=== PATIENT | male | born 1980 | race Caucasian/White ===

== ENCOUNTER 2017-03-08 15:27 | Observation (INO) | payer MEDICARE, SELFPAY ==
[~2017-03-08 15:27] MED LIST: ABILIFY5 MG PO; ALPRAZOLAM1 M2 PO; CELEXA10 MG PO; CIMZIA400 MG/2 M SQ; COLACE100 MG PO; DEPAKOTE; H PO; IMODIUM2 MG; POTASSIUM99 M1 PO; TYLENOL325 M2 PO
[2017-03-08] MEDS ORDERED: KLONOPIN1 M1 PO (15:42)
[2017-03-08] MEDS ORDERED: POTASSIUM CHLO20 ME3 PO (15:42)
[2017-03-08] MEDS ORDERED: TRAZODONE HCL100 M1 PO (15:42)
[2017-03-08] MEDS ORDERED: PROZAC20 M3 PO (15:42)
[2017-03-08] MEDS ORDERED: OMEPRAZOLE20 M3 PO (15:42)
[2017-03-08] MEDS ORDERED: SEROQUEL50 M1 PO (15:59)
[2017-03-08 16:19] LABS: BASO % 0.1 % (0-2); EOS % 5.7 % (0-7); EOSINOPHIL ABSOLUTE COUNT 0.7 tho/cmm (0.0-0.7); HCT-HEMATOCRIT 32.2 % (36.0-53.5); HGB-HEMOGLOBIN 10.9 gm/dl (13.5-17.0); IMMATURE GRANULOCYTES ABSOLUTE 0.04 tho/cmm (0-0.03); IMMATURE GRANULOCYTES PERCENT 0.3 % (0-0.3); LYMPH % 13.4 % (20-45); LYMPH ABSOLUTE COUNT 1.7 tho/cmm (0.8-4.5); MCH (MEAN CORPUSCULAR HGB) 27.3 pg (28.0-32.0); MCHC MEAN CORPUSCULAR HGB CONC 33.9 % (32.0-36.0); MCV (MEAN CELL VOLUME) 80.5 fl (82.0-96.0); MEAN PLATELET VOLUME 8.6 cmc (9.4-12.4); MONO % 8.8 % (0-12); MONOCYTE ABSOLUTE COUNT 1.1 tho/cmm (0.0-1.2); NEUTROPHIL ABSOLUTE COUNT 9.2 tho/cmm (1.6-8.0); NEUTROPHIL-AUTOMATED 9.2 tho/cmm (1.6-8.0); NEUTROPHILS % 71.7 % (40-80); PLATELET COUNT 268 tho/cmm (150-450); RED CELL DISTRIBUTION WIDTH 14.5 % (12.4-16.4); WHITE BLOOD COUNT 12.9 tho/cmm (4.0-10.0)
[2017-03-08 16:34] LABS: ALB/GLOB RATIO 0.7 (0.8-2.0); ALBUMIN 2.9 g/dl (3.5-5.0); ALKALINE PHOSPHATASE 76 U/L (33-138); ALT/SGPT 14 U/L (12-78); ANION GAP 13 mmol/L (0-20); AST/SGOT 14 U/L (10-40); BILIRUBIN,TOTAL 0.2 mg/dl (0.0-1.5); BLOOD UREA NITROGEN 10 mg/dl (6-24); CARBON DIOXIDE-VENOUS 23 mmol/L (22-32); CHLORIDE 103 mmol/l (96-110); CREATININE 1.07 mg/dl (0.60-1.30); GLUCOSE 100 mg/dL (70-110); LIPASE 281 U/L (73-393); SODIUM 136 mmol/L (135-145); eGFR VALUE FOR BLACK >90 mL/Min
[2017-03-08 16:41] LABS: POTASSIUM 2.7 mmol/L (3.7-5.1)
[2017-03-08 17:09] LABS: URINE BILIRUBIN NEGATIVE (NEG); URINE BLOOD NEGATIVE (NEG); URINE GLUCOSE (UA) NEGATIVE (NEG); URINE KETONE NEGATIVE (NEG); URINE LEUKOCYTE ESTERASE NEGATIVE (NEG); URINE NITRITE NEGATIVE (NEG); URINE PH 6.5 (5.0-8.0); URINE PROTEIN NEGATIVE (NEG); URINE SPECIFIC GRAVITY 1.005 (1.003-1.030)
[2017-03-08 17:14] LABS: URINE APPEARANCE CLEAR; URINE COLOR PALE YELLOW
[2017-03-09 05:21] LABS: EOS % 0.5 % (0-7); EOSINOPHIL ABSOLUTE COUNT 0.1 tho/cmm (0.0-0.7); HCT-HEMATOCRIT 32.4 % (36.0-53.5); HGB-HEMOGLOBIN 10.9 gm/dl (13.5-17.0); IMMATURE GRANULOCYTES ABSOLUTE 0.01 tho/cmm (0-0.03); IMMATURE GRANULOCYTES PERCENT 0.1 % (0-0.3); LYMPH % 6.9 % (20-45); LYMPH ABSOLUTE COUNT 0.6 tho/cmm (0.8-4.5); MCH (MEAN CORPUSCULAR HGB) 27.3 pg (28.0-32.0); MCHC MEAN CORPUSCULAR HGB CONC 33.6 % (32.0-36.0); MCV (MEAN CELL VOLUME) 81.2 fl (82.0-96.0); MEAN PLATELET VOLUME 8.8 cmc (9.4-12.4); MONO % 1.1 % (0-12); MONOCYTE ABSOLUTE COUNT 0.1 tho/cmm (0.0-1.2); NEUTROPHIL ABSOLUTE COUNT 8.5 tho/cmm (1.6-8.0); NEUTROPHIL-AUTOMATED 8.5 tho/cmm (1.6-8.0); NEUTROPHILS % 91.4 % (40-80); PLATELET COUNT 253 tho/cmm (150-450); RED BLOOD COUNT 3.99 mil/cmm (4.40-5.70); RED CELL DISTRIBUTION WIDTH 14.6 % (12.4-16.4); WHITE BLOOD COUNT 9.3 tho/cmm (4.0-10.0)
[2017-03-09 05:35] LABS: ANION GAP 14 mmol/L (0-20); BLOOD UREA NITROGEN 9 mg/dl (6-24); CALCIUM 7.8 mg/dl (8.5-10.5); CARBON DIOXIDE-VENOUS 21 mmol/L (22-32); CHLORIDE 111 mmol/l (96-110); CREATININE 1.08 mg/dl (0.60-1.30); GLUCOSE 147 mg/dL (70-110); POTASSIUM 3.7 mmol/L (3.7-5.1); SODIUM 142 mmol/L (135-145); eGFR VALUE FOR BLACK >90 mL/Min
[2017-07-06] MEDS ORDERED: PERCOCET 7.5-31 EAC1 PO (00:07)
[2017-07-17] MEDS ORDERED: STELARA45 MG/0.5 SC (22:06)
[2017-07-17] MEDS ORDERED: CIPRO250 M2 PO (22:08)
[2017-07-17] MEDS ORDERED: PERCOCET 5-3251 EACH PO (23:54)
[2017-07-17] MEDS ORDERED: CIPROFLOXA250 MG/5 M PO (23:54)
[2017-07-24] MEDS ORDERED: PERCOCET 5-3251 EACH PO (20:25)
[2017-07-28] MEDS ORDERED: PERCOCET 7.5-31 EAC1 PO (19:22)
== END 2017-03-09 17:30 ==
LOC: EDMED 15:27 → EMR2 19:45 → 5WD 20:51
PROVIDERS: Emergency Medicine; ADMIT Family Medicine
DX: K50.90 Crohn's disease, unspecified, without complications (principal); F41.9 Anxiety disorder, unspecified; F32.9 Major depressive disorder, single episode, unspecified; E87.6 Hypokalemia; I95.9 Hypotension, unspecified; F12.10 Cannabis abuse, uncomplicated; Z79.899 Other long term (current) drug therapy
CPT/HCPCS: G0378; J1170; J1956; J2270; J2405; J2543; J2930; J3480; J7030; Q9967

== ENCOUNTER 2017-03-17 19:56 | Inpatient (IN) | payer MEDICARE, SELFPAY ==
[~2017-03-17 19:56] MED LIST changes: +KLONOPIN1 M1 PO; +OMEPRAZOLE20 M3 PO; +POTASSIUM CHLO20 ME3 PO; +PROZAC20 M3 PO; +SEROQUEL50 M1 PO; +TRAZODONE HCL100 M1 PO
[2017-03-17] MEDS ORDERED: AUGMENTIN 875-1 EAC2 PO (21:09)
[2017-03-17] MEDS ORDERED: B12 SHOTS (21:10)
[2017-03-17 21:33] LABS: EOS % 1.5 % (0-7); EOSINOPHIL ABSOLUTE COUNT 0.4 tho/cmm (0.0-0.7); HCT-HEMATOCRIT 32.6 % (36.0-53.5); HGB-HEMOGLOBIN 10.8 gm/dl (13.5-17.0); IMMATURE GRANULOCYTES ABSOLUTE 0.26 tho/cmm (0-0.03); IMMATURE GRANULOCYTES PERCENT 1.1 % (0-0.3); LYMPH % 13.5 % (20-45); LYMPH ABSOLUTE COUNT 3.3 tho/cmm (0.8-4.5); MCH (MEAN CORPUSCULAR HGB) 27.6 pg (28.0-32.0); MCHC MEAN CORPUSCULAR HGB CONC 33.1 % (32.0-36.0); MCV (MEAN CELL VOLUME) 83.4 fl (82.0-96.0); MEAN PLATELET VOLUME 8.7 cmc (9.4-12.4); MONO % 5.9 % (0-12); MONOCYTE ABSOLUTE COUNT 1.5 tho/cmm (0.0-1.2); NEUTROPHIL ABSOLUTE COUNT 19.1 tho/cmm (1.6-8.0); NEUTROPHIL-AUTOMATED 19.1 tho/cmm (1.6-8.0); PLATELET COUNT 275 tho/cmm (150-450); RED BLOOD COUNT 3.91 mil/cmm (4.40-5.70); RED CELL DISTRIBUTION WIDTH 15.3 % (12.4-16.4); WHITE BLOOD COUNT 24.5 tho/cmm (4.0-10.0)
[2017-03-17 21:48] LABS: ALB/GLOB RATIO 0.7 (0.8-2.0); ALBUMIN 3.1 g/dl (3.5-5.0); ALKALINE PHOSPHATASE 79 U/L (33-138); ALT/SGPT 25 U/L (12-78); ANION GAP 14 mmol/L (0-20); AST/SGOT 9 U/L (10-40); BILIRUBIN,TOTAL 0.1 mg/dl (0.0-1.5); BLOOD UREA NITROGEN 18 mg/dl (6-24); C-REACTIVE PROTEIN 1.7 mg/dl (0-0.9); CALCIUM 8.4 mg/dl (8.5-10.5); CARBON DIOXIDE-VENOUS 22 mmol/L (22-32); CHLORIDE 106 mmol/l (96-110); CREATININE 1.17 mg/dl (0.60-1.30); GLUCOSE 96 mg/dL (70-110); LIPASE 296 U/L (73-393); POTASSIUM 3.6 mmol/L (3.7-5.1); SODIUM 138 mmol/L (135-145); eGFR VALUE FOR BLACK >90 mL/Min
[2017-03-18 06:39] LABS: BASO % 0.1 % (0-2); EOS % 2.2 % (0-7); EOSINOPHIL ABSOLUTE COUNT 0.4 tho/cmm (0.0-0.7); HCT-HEMATOCRIT 35.3 % (36.0-53.5); HGB-HEMOGLOBIN 11.5 gm/dl (13.5-17.0); IMMATURE GRANULOCYTES ABSOLUTE 0.15 tho/cmm (0-0.03); IMMATURE GRANULOCYTES PERCENT 0.8 % (0-0.3); LYMPH % 17.1 % (20-45); LYMPH ABSOLUTE COUNT 3.1 tho/cmm (0.8-4.5); MCH (MEAN CORPUSCULAR HGB) 27.1 pg (28.0-32.0); MCHC MEAN CORPUSCULAR HGB CONC 32.6 % (32.0-36.0); MCV (MEAN CELL VOLUME) 83.3 fl (82.0-96.0); MEAN PLATELET VOLUME 8.5 cmc (9.4-12.4); MONO % 6.3 % (0-12); MONOCYTE ABSOLUTE COUNT 1.2 tho/cmm (0.0-1.2); NEUTROPHIL ABSOLUTE COUNT 13.5 tho/cmm (1.6-8.0); NEUTROPHIL-AUTOMATED 13.5 tho/cmm (1.6-8.0); NEUTROPHILS % 73.5 % (40-80); PLATELET COUNT 241 tho/cmm (150-450); RED BLOOD COUNT 4.24 mil/cmm (4.40-5.70); RED CELL DISTRIBUTION WIDTH 15.5 % (12.4-16.4); WHITE BLOOD COUNT 18.3 tho/cmm (4.0-10.0)
[2017-03-18 06:41] LABS: PROTHROMBIN TIME 11.4 SECONDS (9.0-13.6)
[2017-03-18 06:53] LABS: ALB/GLOB RATIO 0.6 (0.8-2.0); ALBUMIN 2.5 g/dl (3.5-5.0); ALKALINE PHOSPHATASE 66 U/L (33-138); ALT/SGPT 20 U/L (12-78); AMYLASE 85 U/L (20-90); ANION GAP 9 mmol/L (0-20); AST/SGOT 11 U/L (10-40); BLOOD UREA NITROGEN 19 mg/dl (6-24); C-REACTIVE PROTEIN 1.3 mg/dl (0-0.9); CARBON DIOXIDE-VENOUS 25 mmol/L (22-32); CHLORIDE 107 mmol/l (96-110); CREATININE 1.18 mg/dl (0.60-1.30); GLUCOSE 104 mg/dL (70-110); LIPASE 229 U/L (73-393); MAGNESIUM 2.2 mg/dl (1.8-2.6); PHOSPHOROUS 3.4 mg/dl (2.5-4.9); POTASSIUM 3.2 mmol/L (3.7-5.1); SODIUM 138 mmol/L (135-145); eGFR VALUE FOR BLACK >90 mL/Min
[2017-03-18 06:55] LABS: BILIRUBIN,TOTAL 0.2 mg/dl (0.0-1.5)
[2017-03-18 07:40] LABS: ESR-ERYTHROCYTE SED RATE 30 mm/hr (0-15)
[2017-03-18 12:27] LABS: URINE BILIRUBIN NEGATIVE (NEG); URINE BLOOD NEGATIVE (NEG); URINE GLUCOSE (UA) NEGATIVE (NEG); URINE KETONE NEGATIVE (NEG); URINE LEUKOCYTE ESTERASE NEGATIVE (NEG); URINE NITRITE NEGATIVE (NEG); URINE PROTEIN NEGATIVE (NEG); URINE SPECIFIC GRAVITY 1.005 (1.003-1.030)
[2017-03-18 12:29] LABS: URINE APPEARANCE CLEAR; URINE COLOR COLORLESS
[2017-03-18 12:33] LABS: URINE EPITHELIAL CELLS 0 /[HPF] (0-10); URINE MUCUS 1+; URINE RBC 0 /[HPF] (0-5); URINE WBC 0 /[HPF] (0-5)
[2017-03-18] MEDS ORDERED: PREDNISONE10 M1 PO (12:46)
[2017-03-19 12:03] LABS: BASO % 0.1 % (0-2); EOS % 0.7 % (0-7); EOSINOPHIL ABSOLUTE COUNT 0.1 tho/cmm (0.0-0.7); HCT-HEMATOCRIT 38.3 % (36.0-53.5); HGB-HEMOGLOBIN 12.7 gm/dl (13.5-17.0); IMMATURE GRANULOCYTES ABSOLUTE 0.11 tho/cmm (0-0.03); IMMATURE GRANULOCYTES PERCENT 0.6 % (0-0.3); LYMPH % 7.1 % (20-45); LYMPH ABSOLUTE COUNT 1.3 tho/cmm (0.8-4.5); MCH (MEAN CORPUSCULAR HGB) 27.7 pg (28.0-32.0); MCHC MEAN CORPUSCULAR HGB CONC 33.2 % (32.0-36.0); MCV (MEAN CELL VOLUME) 83.6 fl (82.0-96.0); MEAN PLATELET VOLUME 8.9 cmc (9.4-12.4); MONOCYTE ABSOLUTE COUNT 0.2 tho/cmm (0.0-1.2); NEUTROPHIL ABSOLUTE COUNT 17.2 tho/cmm (1.6-8.0); NEUTROPHIL-AUTOMATED 17.2 tho/cmm (1.6-8.0); NEUTROPHILS % 90.5 % (40-80); PLATELET COUNT 254 tho/cmm (150-450); RED BLOOD COUNT 4.58 mil/cmm (4.40-5.70); RED CELL DISTRIBUTION WIDTH 15.4 % (12.4-16.4); WHITE BLOOD COUNT 18.9 tho/cmm (4.0-10.0)
[2017-03-19 12:13] LABS: ANION GAP 13 mmol/L (0-20); BLOOD UREA NITROGEN 17 mg/dl (6-24); CALCIUM 8.8 mg/dl (8.5-10.5); CARBON DIOXIDE-VENOUS 24 mmol/L (22-32); CHLORIDE 108 mmol/l (96-110); GLUCOSE 155 mg/dL (70-110); SODIUM 141 mmol/L (135-145); eGFR VALUE FOR BLACK 88 mL/Min
[2017-03-20 04:38] LABS: EOS % 1.5 % (0-7); EOSINOPHIL ABSOLUTE COUNT 0.3 tho/cmm (0.0-0.7); HCT-HEMATOCRIT 34.3 % (36.0-53.5); HGB-HEMOGLOBIN 11.2 gm/dl (13.5-17.0); IMMATURE GRANULOCYTES ABSOLUTE 0.15 tho/cmm (0-0.03); IMMATURE GRANULOCYTES PERCENT 0.7 % (0-0.3); LYMPH % 10.3 % (20-45); LYMPH ABSOLUTE COUNT 2.3 tho/cmm (0.8-4.5); MCH (MEAN CORPUSCULAR HGB) 27.3 pg (28.0-32.0); MCHC MEAN CORPUSCULAR HGB CONC 32.7 % (32.0-36.0); MCV (MEAN CELL VOLUME) 83.7 fl (82.0-96.0); MEAN PLATELET VOLUME 8.5 cmc (9.4-12.4); MONO % 5.5 % (0-12); MONOCYTE ABSOLUTE COUNT 1.2 tho/cmm (0.0-1.2); NEUTROPHIL ABSOLUTE COUNT 17.9 tho/cmm (1.6-8.0); NEUTROPHIL-AUTOMATED 17.9 tho/cmm (1.6-8.0); PLATELET COUNT 229 tho/cmm (150-450); RED CELL DISTRIBUTION WIDTH 15.2 % (12.4-16.4); WHITE BLOOD COUNT 21.9 tho/cmm (4.0-10.0)
[2017-03-20 04:46] LABS: ANION GAP 11 mmol/L (0-20); BLOOD UREA NITROGEN 16 mg/dl (6-24); CALCIUM 8.4 mg/dl (8.5-10.5); CARBON DIOXIDE-VENOUS 27 mmol/L (22-32); CHLORIDE 105 mmol/l (96-110); GLUCOSE 96 mg/dL (70-110); POTASSIUM 3.4 mmol/L (3.7-5.1); SODIUM 140 mmol/L (135-145); eGFR VALUE FOR BLACK 88 mL/Min
[2017-03-21 07:18] LABS: BASO % 0.1 % (0-2); EOS % 2.3 % (0-7); EOSINOPHIL ABSOLUTE COUNT 0.4 tho/cmm (0.0-0.7); HCT-HEMATOCRIT 34.5 % (36.0-53.5); HGB-HEMOGLOBIN 11.3 gm/dl (13.5-17.0); IMMATURE GRANULOCYTES ABSOLUTE 0.16 tho/cmm (0-0.03); IMMATURE GRANULOCYTES PERCENT 0.9 % (0-0.3); LYMPH % 12.5 % (20-45); LYMPH ABSOLUTE COUNT 2.3 tho/cmm (0.8-4.5); MCH (MEAN CORPUSCULAR HGB) 27.6 pg (28.0-32.0); MCHC MEAN CORPUSCULAR HGB CONC 32.8 % (32.0-36.0); MCV (MEAN CELL VOLUME) 84.4 fl (82.0-96.0); MEAN PLATELET VOLUME 8.5 cmc (9.4-12.4); MONO % 4.6 % (0-12); MONOCYTE ABSOLUTE COUNT 0.9 tho/cmm (0.0-1.2); NEUTROPHIL ABSOLUTE COUNT 14.8 tho/cmm (1.6-8.0); NEUTROPHIL-AUTOMATED 14.8 tho/cmm (1.6-8.0); NEUTROPHILS % 79.6 % (40-80); PLATELET COUNT 227 tho/cmm (150-450); RED BLOOD COUNT 4.09 mil/cmm (4.40-5.70); RED CELL DISTRIBUTION WIDTH 15.3 % (12.4-16.4); WHITE BLOOD COUNT 18.5 tho/cmm (4.0-10.0)
[2017-03-21 07:28] LABS: ANION GAP 12 mmol/L (0-20); BLOOD UREA NITROGEN 19 mg/dl (6-24); CALCIUM 8.3 mg/dl (8.5-10.5); CARBON DIOXIDE-VENOUS 26 mmol/L (22-32); CHLORIDE 106 mmol/l (96-110); GLUCOSE 117 mg/dL (70-110); MAGNESIUM 2.1 mg/dl (1.8-2.6); POTASSIUM 3.6 mmol/L (3.7-5.1); SODIUM 140 mmol/L (135-145); eGFR VALUE FOR BLACK >90 mL/Min
[2017-03-21 08:09] LABS: ESR-ERYTHROCYTE SED RATE 30 mm/hr (0-15)
[2017-03-21] MEDS ORDERED: XANAX1 M1 PO (14:18)
[2017-07-06] MEDS ORDERED: PERCOCET 7.5-31 EAC1 PO (00:07)
[2017-07-17] MEDS ORDERED: STELARA45 MG/0.5 SC (22:06)
[2017-07-17] MEDS ORDERED: CIPRO250 M2 PO (22:08)
[2017-07-17] MEDS ORDERED: PERCOCET 5-3251 EACH PO (23:54)
[2017-07-17] MEDS ORDERED: CIPROFLOXA250 MG/5 M PO (23:54)
[2017-07-24] MEDS ORDERED: PERCOCET 5-3251 EACH PO (20:25)
[2017-07-28] MEDS ORDERED: PERCOCET 7.5-31 EAC1 PO (19:22)
== END 2017-03-21 14:45 | disposition other institution (70) | DRG 386 ==
LOC: EDMED 19:56 → EMR2 03-18 00:10 → 5WF 03-18 00:55
PROVIDERS: Emergency Medicine; Family Medicine; Internal Medicine Cardiovascular Disease; ADMIT Internal Medicine
PROC: 0W9F30Z Drainage of Abdominal Wall with Drainage Device, Percutaneous Approach (ICD-10-PCS; principal; 2017-03-18)
DX: K50.913 Crohn's disease, unspecified, with fistula (principal); D63.8 Anemia in other chronic diseases classified elsewhere; F32.9 Major depressive disorder, single episode, unspecified; E87.6 Hypokalemia; F41.9 Anxiety disorder, unspecified; K50.914 Crohn's disease, unspecified, with abscess; F17.290 Nicotine dependence, other tobacco product, uncomplicated; Z91.19 Patient's noncompliance with other medical treatment and regimen; Z88.1 Allergy status to other antibiotic agents; Z90.49 Acquired absence of other specified parts of digestive tract; B95.5 Unspecified streptococcus as the cause of diseases classified elsewhere
CPT/HCPCS: C1729; J1170; J2250; J2405; J2543; J3010; J3370; J7030; J7050; J7512; Q9967

== ENCOUNTER 2017-03-27 20:30 | Emergency (ER) | payer MEDICARE, SELFPAY ==
[~2017-03-27 20:30] MED LIST changes: +AUGMENTIN 875-1 EAC2 PO; +B12 SHOTS; +PREDNISONE10 M1 PO; +XANAX1 M1 PO
[2017-03-27 21:37] LABS: BASO % 0.1 % (0-2); EOS % 1.7 % (0-7); EOSINOPHIL ABSOLUTE COUNT 0.3 tho/cmm (0.0-0.7); HGB-HEMOGLOBIN 10.8 gm/dl (13.5-17.0); IMMATURE GRANULOCYTES ABSOLUTE 0.27 tho/cmm (0-0.03); IMMATURE GRANULOCYTES PERCENT 1.5 % (0-0.3); LYMPH ABSOLUTE COUNT 2.4 tho/cmm (0.8-4.5); MCH (MEAN CORPUSCULAR HGB) 27.7 pg (28.0-32.0); MCHC MEAN CORPUSCULAR HGB CONC 31.8 % (32.0-36.0); MCV (MEAN CELL VOLUME) 87.2 fl (82.0-96.0); MEAN PLATELET VOLUME 8.6 cmc (9.4-12.4); MONO % 4.2 % (0-12); MONOCYTE ABSOLUTE COUNT 0.8 tho/cmm (0.0-1.2); NEUTROPHIL ABSOLUTE COUNT 14.7 tho/cmm (1.6-8.0); NEUTROPHIL-AUTOMATED 14.7 tho/cmm (1.6-8.0); NEUTROPHILS % 79.5 % (40-80); PLATELET COUNT 275 tho/cmm (150-450); RED CELL DISTRIBUTION WIDTH 16.5 % (12.4-16.4); WHITE BLOOD COUNT 18.5 tho/cmm (4.0-10.0)
[2017-03-27] MEDS ORDERED: OXYCODONE-ACET1 EAC3 PO (21:47)
[2017-07-06] MEDS ORDERED: PERCOCET 7.5-31 EAC1 PO (00:07)
[2017-07-17] MEDS ORDERED: STELARA45 MG/0.5 SC (22:06)
[2017-07-17] MEDS ORDERED: CIPRO250 M2 PO (22:08)
[2017-07-17] MEDS ORDERED: PERCOCET 5-3251 EACH PO (23:54)
[2017-07-17] MEDS ORDERED: CIPROFLOXA250 MG/5 M PO (23:54)
[2017-07-24] MEDS ORDERED: PERCOCET 5-3251 EACH PO (20:25)
[2017-07-28] MEDS ORDERED: PERCOCET 7.5-31 EAC1 PO (19:22)
== END 2017-03-27 22:06 ==
LOC: EDMED 20:30
PROVIDERS: Emergency Medicine
DX: T85.518A Breakdown (mechanical) of other gastrointestinal prosthetic devices, implants and grafts, initial encounter (principal)
CPT/HCPCS: J2405

== ENCOUNTER 2017-04-04 22:33 | Inpatient (IN) | payer MEDICARE, SELFPAY ==
[~2017-04-04 22:33] MED LIST changes: +OXYCODONE-ACET1 EAC3 PO
[2017-04-04 23:51] LABS: BASO % 0.1 % (0-2); EOS % 3.2 % (0-7); EOSINOPHIL ABSOLUTE COUNT 0.4 tho/cmm (0.0-0.7); HCT-HEMATOCRIT 34.6 % (36.0-53.5); IMMATURE GRANULOCYTES ABSOLUTE 0.14 tho/cmm (0-0.03); IMMATURE GRANULOCYTES PERCENT 1.2 % (0-0.3); LYMPH % 19.8 % (20-45); LYMPH ABSOLUTE COUNT 2.4 tho/cmm (0.8-4.5); MCH (MEAN CORPUSCULAR HGB) 27.6 pg (28.0-32.0); MCHC MEAN CORPUSCULAR HGB CONC 31.8 % (32.0-36.0); MCV (MEAN CELL VOLUME) 86.9 fl (82.0-96.0); MEAN PLATELET VOLUME 8.7 cmc (9.4-12.4); MONOCYTE ABSOLUTE COUNT 0.7 tho/cmm (0.0-1.2); NEUTROPHIL ABSOLUTE COUNT 8.4 tho/cmm (1.6-8.0); NEUTROPHIL-AUTOMATED 8.4 tho/cmm (1.6-8.0); NEUTROPHILS % 69.7 % (40-80); PLATELET COUNT 239 tho/cmm (150-450); RED BLOOD COUNT 3.98 mil/cmm (4.40-5.70); RED CELL DISTRIBUTION WIDTH 16.7 % (12.4-16.4); WHITE BLOOD COUNT 12.1 tho/cmm (4.0-10.0)
[2017-04-04 23:56] LABS: ANION GAP 15 mmol/L (0-20); BLOOD UREA NITROGEN 24 mg/dl (6-24); CALCIUM 8.3 mg/dl (8.5-10.5); CARBON DIOXIDE-VENOUS 22 mmol/L (22-32); CHLORIDE 107 mmol/l (96-110); CREATININE 0.96 mg/dl (0.60-1.30); GLUCOSE 123 mg/dL (70-110); POTASSIUM 3.6 mmol/L (3.7-5.1); SODIUM 140 mmol/L (135-145); eGFR VALUE FOR BLACK >90 mL/Min
[2017-04-05 01:24] LABS: URINE BILIRUBIN NEGATIVE (NEG); URINE BLOOD NEGATIVE (NEG); URINE GLUCOSE (UA) NEGATIVE (NEG); URINE KETONE NEGATIVE (NEG); URINE LEUKOCYTE ESTERASE NEGATIVE (NEG); URINE NITRITE NEGATIVE (NEG); URINE PROTEIN MODERATE (NEG)
[2017-04-05 01:27] LABS: URINE APPEARANCE CLEAR; URINE COLOR YELLOW
[2017-04-05 01:51] LABS: URINE EPITHELIAL CELLS 0 /[HPF] (0-10); URINE RBC 0 /[HPF] (0-5); URINE WBC 0 /[HPF] (0-5)
[2017-04-05 05:57] LABS: BASO % 0.1 % (0-2); EOS % 2.4 % (0-7); EOSINOPHIL ABSOLUTE COUNT 0.3 tho/cmm (0.0-0.7); HCT-HEMATOCRIT 33.7 % (36.0-53.5); HGB-HEMOGLOBIN 10.6 gm/dl (13.5-17.0); IMMATURE GRANULOCYTES ABSOLUTE 0.09 tho/cmm (0-0.03); IMMATURE GRANULOCYTES PERCENT 0.7 % (0-0.3); LYMPH % 14.5 % (20-45); LYMPH ABSOLUTE COUNT 1.9 tho/cmm (0.8-4.5); MCH (MEAN CORPUSCULAR HGB) 27.5 pg (28.0-32.0); MCHC MEAN CORPUSCULAR HGB CONC 31.5 % (32.0-36.0); MCV (MEAN CELL VOLUME) 87.3 fl (82.0-96.0); MEAN PLATELET VOLUME 8.5 cmc (9.4-12.4); MONO % 6.7 % (0-12); MONOCYTE ABSOLUTE COUNT 0.9 tho/cmm (0.0-1.2); NEUTROPHIL ABSOLUTE COUNT 9.6 tho/cmm (1.6-8.0); NEUTROPHIL-AUTOMATED 9.6 tho/cmm (1.6-8.0); NEUTROPHILS % 75.6 % (40-80); PLATELET COUNT 220 tho/cmm (150-450); RED BLOOD COUNT 3.86 mil/cmm (4.40-5.70); RED CELL DISTRIBUTION WIDTH 16.9 % (12.4-16.4); WHITE BLOOD COUNT 12.7 tho/cmm (4.0-10.0)
[2017-04-05 06:02] LABS: INR 0.8 INR (0.9-1.1); PROTHROMBIN TIME 9.8 SECONDS (9.0-13.6)
[2017-04-05 06:16] LABS: ANION GAP 14 mmol/L (0-20); BLOOD UREA NITROGEN 20 mg/dl (6-24); C-REACTIVE PROTEIN 1.2 mg/dl (0-0.9); CALCIUM 7.8 mg/dl (8.5-10.5); CARBON DIOXIDE-VENOUS 23 mmol/L (22-32); CHLORIDE 107 mmol/l (96-110); CREATININE 0.87 mg/dl (0.60-1.30); GLUCOSE 96 mg/dL (70-110); POTASSIUM 3.7 mmol/L (3.7-5.1); SODIUM 140 mmol/L (135-145); eGFR VALUE FOR BLACK >90 mL/Min
[2017-04-05 07:01] LABS: PROCALCITONIN 0.06 ng/ml (0.05-0.09)
[2017-04-05] MEDS ORDERED: VENTOLIN HFA18 G2 INH (16:41)
[2017-04-06 05:49] LABS: BASO % 0.1 % (0-2); EOS % 2.5 % (0-7); EOSINOPHIL ABSOLUTE COUNT 0.3 tho/cmm (0.0-0.7); HCT-HEMATOCRIT 33.3 % (36.0-53.5); HGB-HEMOGLOBIN 10.5 gm/dl (13.5-17.0); IMMATURE GRANULOCYTES ABSOLUTE 0.09 tho/cmm (0-0.03); IMMATURE GRANULOCYTES PERCENT 0.9 % (0-0.3); LYMPH ABSOLUTE COUNT 1.6 tho/cmm (0.8-4.5); MCH (MEAN CORPUSCULAR HGB) 27.2 pg (28.0-32.0); MCHC MEAN CORPUSCULAR HGB CONC 31.5 % (32.0-36.0); MCV (MEAN CELL VOLUME) 86.3 fl (82.0-96.0); MEAN PLATELET VOLUME 8.5 cmc (9.4-12.4); MONOCYTE ABSOLUTE COUNT 0.7 tho/cmm (0.0-1.2); NEUTROPHIL ABSOLUTE COUNT 7.4 tho/cmm (1.6-8.0); NEUTROPHIL-AUTOMATED 7.4 tho/cmm (1.6-8.0); NEUTROPHILS % 73.5 % (40-80); PLATELET COUNT 211 tho/cmm (150-450); RED BLOOD COUNT 3.86 mil/cmm (4.40-5.70); RED CELL DISTRIBUTION WIDTH 16.4 % (12.4-16.4); WHITE BLOOD COUNT 10.1 tho/cmm (4.0-10.0)
[2017-04-06 05:59] LABS: ANION GAP 11 mmol/L (0-20); BLOOD UREA NITROGEN 17 mg/dl (6-24); CALCIUM 8.2 mg/dl (8.5-10.5); CARBON DIOXIDE-VENOUS 26 mmol/L (22-32); CHLORIDE 107 mmol/l (96-110); CREATININE 0.88 mg/dl (0.60-1.30); GLUCOSE 82 mg/dL (70-110); MAGNESIUM 2.3 mg/dl (1.8-2.6); POTASSIUM 3.5 mmol/L (3.7-5.1); SODIUM 140 mmol/L (135-145); eGFR VALUE FOR BLACK >90 mL/Min
--- NOTE | 2017-04-06 10:33 | NUR ---
paged d/t fistula cx showed Enterobacter, which is resistant to zosyn
--- NOTE | 2017-04-06 13:33 | NUR ---
paged again about fisulta cx results, enterobacter, being resistant to zosyn. asked if wanted to change antibiotic. awaiting response
[2017-04-06] MEDS ORDERED: PERCOCET 5-3251 EACH PO (16:31)
[2017-04-06] MEDS ORDERED: LEVAQUIN750 M1 PO (16:32)
[2017-07-06] MEDS ORDERED: PERCOCET 7.5-31 EAC1 PO (00:07)
[2017-07-17] MEDS ORDERED: STELARA45 MG/0.5 SC (22:06)
[2017-07-17] MEDS ORDERED: CIPRO250 M2 PO (22:08)
[2017-07-17] MEDS ORDERED: PERCOCET 5-3251 EACH PO (23:54)
[2017-07-17] MEDS ORDERED: CIPROFLOXA250 MG/5 M PO (23:54)
[2017-07-24] MEDS ORDERED: PERCOCET 5-3251 EACH PO (20:25)
[2017-07-28] MEDS ORDERED: PERCOCET 7.5-31 EAC1 PO (19:22)
== END 2017-04-06 16:53 | DRG 372 ==
LOC: EDMED 22:33 → EMR2 04-05 02:03 → 5WE 04-05 02:54
PROVIDERS: Internal Medicine; Nurse Practitioner Family; Registered Nurse; ADMIT Hospitalist
DX: K65.9 Peritonitis, unspecified (principal); K50.918 Crohn's disease, unspecified, with other complication; E87.2 Acidosis; J20.9 Acute bronchitis, unspecified; Z90.49 Acquired absence of other specified parts of digestive tract; R73.9 Hyperglycemia, unspecified; F41.9 Anxiety disorder, unspecified; F32.9 Major depressive disorder, single episode, unspecified; E53.8 Deficiency of other specified B group vitamins; Z88.1 Allergy status to other antibiotic agents; F17.210 Nicotine dependence, cigarettes, uncomplicated
CPT/HCPCS: J1170; J1200; J2270; J2405; J2543; J7030; J7050; J7512; Q9967

== ENCOUNTER 2017-04-11 14:48 | Emergency (ER) | payer MEDICARE, SELFPAY ==
[~2017-04-11 14:48] MED LIST changes: +LEVAQUIN750 M1 PO; +PERCOCET 5-3251 EACH PO; +VENTOLIN HFA18 G2 INH
[2017-04-11 16:27] LABS: BASO % 0.1 % (0-2); EOS % 0.8 % (0-7); EOSINOPHIL ABSOLUTE COUNT 0.1 tho/cmm (0.0-0.7); HCT-HEMATOCRIT 38.5 % (36.0-53.5); HGB-HEMOGLOBIN 12.5 gm/dl (13.5-17.0); IMMATURE GRANULOCYTES ABSOLUTE 0.12 tho/cmm (0-0.03); IMMATURE GRANULOCYTES PERCENT 0.8 % (0-0.3); LYMPH % 8.5 % (20-45); LYMPH ABSOLUTE COUNT 1.3 tho/cmm (0.8-4.5); MCH (MEAN CORPUSCULAR HGB) 28.1 pg (28.0-32.0); MCHC MEAN CORPUSCULAR HGB CONC 32.5 % (32.0-36.0); MCV (MEAN CELL VOLUME) 86.5 fl (82.0-96.0); MEAN PLATELET VOLUME 8.7 cmc (9.4-12.4); MONO % 3.5 % (0-12); MONOCYTE ABSOLUTE COUNT 0.6 tho/cmm (0.0-1.2); NEUTROPHIL ABSOLUTE COUNT 13.4 tho/cmm (1.6-8.0); NEUTROPHIL-AUTOMATED 13.4 tho/cmm (1.6-8.0); NEUTROPHILS % 86.3 % (40-80); PLATELET COUNT 251 tho/cmm (150-450); RED BLOOD COUNT 4.45 mil/cmm (4.40-5.70); RED CELL DISTRIBUTION WIDTH 15.9 % (12.4-16.4); WHITE BLOOD COUNT 15.5 tho/cmm (4.0-10.0)
[2017-04-11 16:39] LABS: ANION GAP 18 mmol/L (0-20); BLOOD UREA NITROGEN 16 mg/dl (6-24); C-REACTIVE PROTEIN 1.7 mg/dl (0-0.9); CALCIUM 9.1 mg/dl (8.5-10.5); CARBON DIOXIDE-VENOUS 23 mmol/L (22-32); CHLORIDE 104 mmol/l (96-110); CREATININE 1.11 mg/dl (0.60-1.30); GLUCOSE 97 mg/dL (70-110); POTASSIUM 4.4 mmol/L (3.7-5.1); SODIUM 141 mmol/L (135-145); eGFR VALUE FOR BLACK >90 mL/Min
[2017-04-11 16:40] LABS: URINE BILIRUBIN NEGATIVE (NEG); URINE BLOOD NEGATIVE (NEG); URINE GLUCOSE (UA) NEGATIVE (NEG); URINE KETONE NEGATIVE (NEG); URINE LEUKOCYTE ESTERASE NEGATIVE (NEG); URINE NITRITE NEGATIVE (NEG); URINE PROTEIN SMALL (NEG)
[2017-04-11 16:44] LABS: URINE APPEARANCE CLEAR; URINE COLOR YELLOW
[2017-04-11 16:48] LABS: URINE EPITHELIAL CELLS RARE /[HPF] (0-10); URINE RBC 0 /[HPF] (0-5); URINE WBC 0 /[HPF] (0-5)
[2017-04-11 16:51] LABS: ESR-ERYTHROCYTE SED RATE 22 mm/hr (0-15)
[2017-04-11 16:58] LABS: PROCALCITONIN <0.05 ng/ml (0.05-0.09)
[2017-04-11] MEDS ORDERED: OXYCODONE-ACET1 EAC3 PO (20:08)
[2017-07-06] MEDS ORDERED: PERCOCET 7.5-31 EAC1 PO (00:07)
[2017-07-17] MEDS ORDERED: STELARA45 MG/0.5 SC (22:06)
[2017-07-17] MEDS ORDERED: CIPRO250 M2 PO (22:08)
[2017-07-17] MEDS ORDERED: CIPROFLOXA250 MG/5 M PO (23:54)
[2017-07-17] MEDS ORDERED: PERCOCET 5-3251 EACH PO (23:54)
[2017-07-24] MEDS ORDERED: PERCOCET 5-3251 EACH PO (20:25)
[2017-07-28] MEDS ORDERED: PERCOCET 7.5-31 EAC1 PO (19:22)
== END 2017-04-11 20:21 ==
LOC: EDMED 14:48
PROVIDERS: Emergency Medicine
DX: K50.90 Crohn's disease, unspecified, without complications (principal); E86.0 Dehydration
CPT/HCPCS: J1170; J2405; J7030; Q9967

== ENCOUNTER 2017-05-07 05:20 | Emergency (ER) | payer MEDICARE, SELFPAY ==
[2017-05-07 06:20] LABS: BASO % 0.1 % (0-2); EOS % 2.2 % (0-7); EOSINOPHIL ABSOLUTE COUNT 0.3 tho/cmm (0.0-0.7); HCT-HEMATOCRIT 37.7 % (36.0-53.5); HGB-HEMOGLOBIN 12.3 gm/dl (13.5-17.0); IMMATURE GRANULOCYTES ABSOLUTE 0.06 tho/cmm (0-0.03); IMMATURE GRANULOCYTES PERCENT 0.5 % (0-0.3); LYMPH % 20.6 % (20-45); LYMPH ABSOLUTE COUNT 2.7 tho/cmm (0.8-4.5); MCH (MEAN CORPUSCULAR HGB) 27.3 pg (28.0-32.0); MCHC MEAN CORPUSCULAR HGB CONC 32.6 % (32.0-36.0); MCV (MEAN CELL VOLUME) 83.8 fl (82.0-96.0); MEAN PLATELET VOLUME 8.7 cmc (9.4-12.4); MONO % 7.4 % (0-12); NEUTROPHIL ABSOLUTE COUNT 8.9 tho/cmm (1.6-8.0); NEUTROPHIL-AUTOMATED 8.9 tho/cmm (1.6-8.0); NEUTROPHILS % 69.2 % (40-80); PLATELET COUNT 317 tho/cmm (150-450); RED CELL DISTRIBUTION WIDTH 15.5 % (12.4-16.4); WHITE BLOOD COUNT 12.9 tho/cmm (4.0-10.0)
[2017-05-07] MEDS ORDERED: AUGMENTIN 875-1 EAC2 PO (06:25)
[2017-05-07 06:40] LABS: ALB/GLOB RATIO 0.6 (0.8-2.0); ALBUMIN 3.1 g/dl (3.5-5.0); ALKALINE PHOSPHATASE 68 U/L (33-138); ALT/SGPT 20 U/L (12-78); ANION GAP 12 mmol/L (0-20); AST/SGOT 13 U/L (10-40); BILIRUBIN,TOTAL 0.2 mg/dl (0.0-1.5); BLOOD UREA NITROGEN 12 mg/dl (6-24); C-REACTIVE PROTEIN 1.6 mg/dl (0-0.9); CALCIUM 8.6 mg/dl (8.5-10.5); CARBON DIOXIDE-VENOUS 21 mmol/L (22-32); CHLORIDE 111 mmol/l (96-110); CREATININE 1.02 mg/dl (0.60-1.30); GLUCOSE 108 mg/dL (70-110); LIPASE 275 U/L (73-393); SODIUM 141 mmol/L (135-145); eGFR VALUE FOR BLACK >90 mL/Min
[2017-05-07 06:50] LABS: POTASSIUM 2.9 mmol/L (3.7-5.1)
[2017-05-07 07:49] LABS: URINE BILIRUBIN NEGATIVE (NEG); URINE BLOOD NEGATIVE (NEG); URINE GLUCOSE (UA) NEGATIVE (NEG); URINE KETONE NEGATIVE (NEG); URINE LEUKOCYTE ESTERASE NEGATIVE (NEG); URINE NITRITE NEGATIVE (NEG); URINE PROTEIN MODERATE (NEG)
[2017-05-07 07:52] LABS: URINE APPEARANCE CLEAR; URINE COLOR YELLOW
[2017-05-07 08:01] LABS: URINE EPITHELIAL CELLS 0-1 /[HPF] (0-10); URINE RBC 0-1 /[HPF] (0-5); URINE WBC 0 /[HPF] (0-5)
[2017-05-07] MEDS ORDERED: PERCOCET 5-3251 EACH PO (08:01)
[2017-05-07] MEDS ORDERED: PREDNISONE20 M1 PO (08:01)
[2017-07-06] MEDS ORDERED: PERCOCET 7.5-31 EAC1 PO (00:07)
[2017-07-17] MEDS ORDERED: STELARA45 MG/0.5 SC (22:06)
[2017-07-17] MEDS ORDERED: CIPRO250 M2 PO (22:08)
[2017-07-17] MEDS ORDERED: CIPROFLOXA250 MG/5 M PO (23:54)
[2017-07-17] MEDS ORDERED: PERCOCET 5-3251 EACH PO (23:54)
[2017-07-24] MEDS ORDERED: PERCOCET 5-3251 EACH PO (20:25)
[2017-07-28] MEDS ORDERED: PERCOCET 7.5-31 EAC1 PO (19:22)
== END 2017-05-07 09:06 ==
LOC: EDMED 05:20
PROVIDERS: Emergency Medicine
DX: K50.90 Crohn's disease, unspecified, without complications (principal); E87.6 Hypokalemia; L02.211 Cutaneous abscess of abdominal wall; F32.9 Major depressive disorder, single episode, unspecified; F41.9 Anxiety disorder, unspecified; Z79.899 Other long term (current) drug therapy; F17.200 Nicotine dependence, unspecified, uncomplicated
CPT/HCPCS: J1170; J2405; J2930; J3480; J7030; Q9967